=== PATIENT | female | born 1970 | race Caucasian/White ===

== ENCOUNTER → 2017-06-03 | Outpatient (CLI) | payer OTHER ==
--- NOTE | 2017-06-04 10:02 | MM ---
Reason for exam: screening (asymptomatic). Last mammogram was performed 2 years and 10 months ago. Physical Findings: A clinical breast exam by your physician is recommended on an annual basis and results should be correlated with mammographic findings. MG Screening Mammo w CAD Bilateral CC and MLO view(s) were taken. Prior study comparison: July 18, 2014, bilateral MG screening mammo w CAD. The breast tissue is heterogeneously dense. This may lower the sensitivity of mammography. No suspicious abnormality. No significant changes when compared with prior studies. ASSESSMENT: Negative, BI-RAD 1 RECOMMENDATION: Routine screening mammogram of both breasts in 1 year.
== END | disposition home or self-care (01) ==
LOC: RADMAMWWP 12:59
PROVIDERS: ATTEND Obstetrics & Gynecology
DX: Z12.31 Encounter for screening mammogram for malignant neoplasm of breast (principal)
CPT/HCPCS: 77067

== ENCOUNTER → 2018-02-25 | Outpatient (CLI) | payer BC ==
--- NOTE | 2018-02-25 10:33 | XR ---
EXAMINATION TYPE: XR abdomen 2V DATE OF EXAM: 02/25/2018 HISTORY: Pain. Technique: 2 views of the abdomen are submitted. Comparison: None. Findings: There is no convincing evidence of pneumoperitoneum. The Bowel gas pattern is nonspecific and nonobstructive. No sizable air-fluid levels are seen. No mass effects are noted. No renal calcifications are identified. IMPRESSION: 1. Nonspecific nonobstructive bowel gas pattern
== END | disposition home or self-care (01) ==
LOC: RADXRYALE 09:58
PROVIDERS: ATTEND Physician Assistant Medical
DX: R10.30 Lower abdominal pain, unspecified (principal)
CPT/HCPCS: 74019

== ENCOUNTER 2018-09-28 12:51 | Emergency (ER) | payer BC ==
[2018-09-28 13:32] VITALS: RESP 18
[2018-09-28 14:15] VITALS: TEMP 97.8
[2018-09-28] MEDS ORDERED: diphenhydrAMINE 50 MG/ML 1 ML VIAL IVP STA (14:19)
[2018-09-28] MEDS ORDERED: SODIUM CHLORIDE 0.9% 2,000 ML IV STA (14:19)
[2018-09-28] MEDS ORDERED: PANTOPRAZOLE 40 MG/10 ML VIAL IVP STA (14:19)
[2018-09-28] MEDS ORDERED: ONDANSETRON 4 MG/2 ML VIAL IVP STA (14:19)
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
[2018-09-28 15:02] LABS: Albumin 5.3 g/dL (3.5-5.0); Calcium 10.7 mg/dL (8.4-10.2); Potassium 4.2 mmol/L (3.5-5.1); Total Bilirubin 0.8 mg/dL (0.2-1.3); Total Protein 9.2 g/dL (6.3-8.2)
[2018-09-28 15:07] LABS: Anisocytosis Slight; Basophils # (A) 0.1 k/uL (0-0.2); Basophils % (A) 0 %; Eosinophils # (A) 0.3 k/uL (0-0.7); Eosinophils % (A) 1 %; HCT 53.1 % (34.0-46.0); HGB 17.3 gm/dL (11.4-16.0); Lymphocytes # (A) 0.7 k/uL (1.0-4.8); Lymphocytes % (A) 3 %; MCH 26.9 pg (25.0-35.0); MCHC 32.6 g/dL (31.0-37.0); MCV 82.6 fL (80.0-100.0); Mean Platelet Volume 7.9; Monocytes # (A) 1.2 k/uL (0-1.0); Monocytes % (A) 5 %; Neutrophils # (A) 22.8 k/uL (1.3-7.7); Neutrophils % (A) 91 %; Platelet Count 369 k/uL (150-450); RBC 6.43 m/uL (3.80-5.40); RDW 16.8 % (11.5-15.5); WBC 25.1 k/uL (3.8-10.6)
--- NOTE | 2018-09-28 15:10 | XR ---
EXAMINATION TYPE: XR KUB DATE OF EXAM: 09/28/2018 3:06 PM CLINICAL HISTORY: Nausea, vomiting and bloody stool TECHNIQUE: Single upright image of the abdomen is obtained. COMPARISON: None. FINDINGS: Overall there is a possibility of bowel gas. Scattered gas is seen in nondistended bowel. T here is no visceromegaly, pneumoperitoneum, or abnormal calcification appreciated. The lung bases are clear and the osseous structures are intact. Largely intrathoracic stomach is noted. IMPRESSION: There is a largely intrathoracic stomach noted. Overall paucity of bowel gas throughout t he abdomen is nonspecific but can be seen in colitis. Nonobstructive bowel gas pattern. No pneumoperi toneum is seen.
--- NOTE | 2018-09-28 16:22 | CT ---
EXAMINATION TYPE: CT abdomen pelvis wo con DATE OF EXAM: 09/28/2018 HISTORY: Nausea and vomiting today. CT DLP: 578.2 mGycm. Automated Exposure Control for Dose Reduction was Utilized. TECHNIQUE: CT scan of the abdomen and pelvis is performed without oral or IV contrast. COMPARISON: CTA chest July 02, 2012 FINDINGS: Within the limitations of a non-contrast study, the following observations are made. LUNG BASES: No significant abnormality is appreciated. LIVER/GB: Nonspecific 1.4 cm hypodense lesion anterior right hepatic dome axial image 14 is slightly enlarged from 2013 CT favoring simple thin-walled cyst. PANCREAS: No significant abnormality is seen. SPLEEN: No significant abnormality is seen. ADRENALS: No significant abnormality is seen. KIDNEYS: No renal calculi or hydronephrosis. BOWEL: Moderate to large size hiatal hernia with gastric twisting is present as greater curvature is more cranial position relative to lesser curvature. This is presumed chronic but is only partially im aged on this study. There was hernia with abnormal twisting in 2013 CT but it is increased in size fr om the study. Proximal to mid esophagus is not included in [id number] Remainder of bowel shows no suspicious dilatation. GENITAL ORGANS: Lobulated prominent uterus suggests underlying fibroids. LYMPH NODES: No greater than 1cm abdominal or pelvic lymph nodes are appreciated. OSSEOUS STRUCTURES: No significant abnormality is seen. OTHER: No significant additional abnormality is seen. IMPRESSION: No bowel obstruction. Moderate to large size hiatal hernia increased in size from 2013 CT with abnormal twisting redemonstrated favored chronic finding.
[2018-09-28] MEDS ORDERED: cefTRIAXone IN SWFI 1,000 MG/10 ML SYRINGE IVP STA (16:35)
[2018-09-28] MEDS ORDERED: DEXAMETHASONE SOD PHOSPHATE 10 MG/ML 1 ML VIAL IV STA (16:39)
[2018-09-28 16:46] LABS: Amorphous Sediment,Urine Occasional /hpf; Appearance,Urine Turbid (Clear); Bacteria,Urine Occasional /hpf; Bilirubin,Urine 1+ (Negative); Blood,Urine Small (Negative); Color,Urine Dark Brown; Glucose,Urine (UA) Trace (Negative); Hyaline Casts,Urine 589 /lpf (0-2); Ketones,Urine Negative (Negative); Leukocyte Esterase,Urine Trace (Negative); Mucus,Urine Many /hpf; Nitrite,Urine Negative (Negative); PH, Urine 5.5 (5.0-8.0); Protein,Urine 2+ (Negative); RBC,Urine 8 /hpf (0-5); Specific Gravity,Urine 1.027 (1.001-1.035); Squamous Epithelial Cell,Urine 33 /hpf (0-4)
[2018-09-28 16:51] VITALS: BP 103/61; PULSE 87
== END 2018-09-28 17:26 | disposition home or self-care (01) ==
LOC: EC 12:51
DX: K52.9 Noninfective gastroenteritis and colitis, unspecified (principal); D72.829 Elevated white blood cell count, unspecified; N17.9 Acute kidney failure, unspecified; K12.2 Cellulitis and abscess of mouth; E86.0 Dehydration; Z79.899 Other long term (current) drug therapy; Z91.030 Bee allergy status
CPT/HCPCS: 99285; 96374; 96375 ×4; 96361 ×2; 36415; 80053; 82150; 83690; 85025; 81001; 87086; 74018; 74176; J1200; J1100; J2405; J0696; C9113

== ENCOUNTER → 2019-05-09 | Outpatient (CLI) | payer OTHER ==
--- NOTE | 2019-05-12 11:14 | MM ---
Reason for exam: screening (asymptomatic). Last mammogram was performed 1 year and 11 months ago. History: Cyst aspiration of the left breast, 2004. Physical Findings: A clinical breast exam by your physician is recommended on an annual basis and results should be correlated with mammographic findings. MG 3D Screening Mammo W/Cad Bilateral CC and MLO view(s) were taken. Prior study comparison: June 03, 2017, bilateral MG screening mammo w CAD. July 18, 2014, bilateral MG screening mammo w CAD. The breast tissue is heterogeneously dense. This may lower the sensitivity of mammography. There are benign appearing oval, circumscribed bilateral masses similar to prior exams. No suspicious abnormality. No significant changes when compared with prior studies. ASSESSMENT: Benign, BI-RAD 2 RECOMMENDATION: Routine screening mammogram of both breasts in 1 year.
== END | disposition home or self-care (01) ==
LOC: RADMAMWWP 16:41
PROVIDERS: ATTEND Obstetrics & Gynecology
DX: Z12.31 Encounter for screening mammogram for malignant neoplasm of breast (principal)
CPT/HCPCS: 77063; 77067

== ENCOUNTER → 2021-04-25 | Outpatient (CLI) | payer OTHER ==
--- NOTE | 2021-04-25 11:30 | XR ---
EXAMINATION TYPE: XR chest 2V DATE OF EXAM: 04/25/2021 COMPARISON: 04/18/2014 HISTORY: Shortness of breath TECHNIQUE: Frontal and lateral views of the chest are obtained. FINDINGS: Scattered senescent parenchymal changes noted. Hyperinflation compatible with COPD. Large fixed hiata l hernia noted. No evidence for infiltrate. No evidence for atelectasis. Heart size is stable. Mediastinal structures are stable and grossly unremarkable. No evidence for hilar prominence. Degenerative changes dorsal spine. IMPRESSION: 1. No evidence for acute pulmonary disease.
== END | disposition home or self-care (01) ==
LOC: RADXRYALE 08:48
PROVIDERS: ATTEND Physician Assistant
DX: R06.02 Shortness of breath (principal)
CPT/HCPCS: 71046

== ENCOUNTER → 2021-05-17 | Outpatient (CLI) | payer BC ==
--- NOTE | 2021-05-17 14:40 | FL ---
EXAMINATION TYPE: FL barium swallow DATE OF EXAM: 05/17/2021 COMPARISON: None HISTORY: Gastroesophageal reflux, hiatal hernia TECHNIQUE: Real-time fluoroscopy observation and overhead radiographs were obtained FINDINGS: There is a large hiatal hernia including slightly more than 50% of the stomach. The esophagus dilates to normal caliber. The gastroesophageal junction appears to lie above the diaph ragm. Contrast extends into the proximal and distal stomach. Fluoroscopy time: 1 minute 26 seconds. Images: 138 IMPRESSION: 1. Large portion of the stomach herniated into the lower thoracic region. The gastroesophageal junct ion appears to lie above the diaphragm.
== END | disposition home or self-care (01) ==
LOC: RADUSWWP 10:00
PROVIDERS: ATTEND Surgery
DX: K46.9 Unspecified abdominal hernia without obstruction or gangrene (principal)
CPT/HCPCS: 74220

== ENCOUNTER 2021-06-10 05:48 | Inpatient (IN) | payer BC ==
[~2021-06-10 05:48] MED LIST: ACETAMINOPHEN TAB 500 MG TAB PO PRN; HEPARIN SODIUM,PORCINE/PF 5,000 UNIT/0.5 ML SYRINGE SQ PRN
[2021-06-10] MEDS ORDERED: ONDANSETRON 4 MG/2 ML VIAL IVP ONE (06:22)
[2021-06-10] MEDS ORDERED: LIDOCAINE 1% (10MG/ML) FOR IV START INTRADERMA PRN (06:22)
[2021-06-10] MEDS ORDERED: DEXAMETHASONE SOD PHOSPHATE 4 MG/ML 1 ML VIAL IV ONE (06:22)
[2021-06-10] MEDS ORDERED: HYDROmorphone 1 MG/ML 1 ML SYRINGE IVP PRN ×2 (06:22→09:40)
[2021-06-10] MEDS ORDERED: SCOPOLAMINE 1.5MG/72HR PATCH TRANSDERM ONE (06:22)
[2021-06-10] MEDS: LACTATED RINGERS 1,000 ML IV SCH (06:45)
[2021-06-10 06:58] LABS: Potassium 3.9 mmol/L (3.5-5.1)
[2021-06-10] MEDS ORDERED: BUPIVACAIN-EPI 0.25%-1:200,000 30 ML VIAL SQ ONE (08:18)
--- NOTE | 2021-06-10 09:34 | P.GSHP ---
History of Present Illness H&P Date: 06/10/21 Chief Complaint: Dysphagia This a 50-year-old female who's had chronic issues with dysphagia and GERD. Patient was found to have a large paraesophageal hernia with a intrathoracic stomach. She presents today for laparoscopic repair. Patient aware the risks of conversion to the open procedure and injury to the stomach liver or spleen. Past Medical History Past Medical History: GERD/Reflux Additional Past Medical History / Comment(s): large hiatal hernia that causes SOB per pt, tested + for covid 12-24-21, constipation/diarreha, IBD, diverticulits, anemia, History of Any Multi-Drug Resistant Organisms: None Reported Past Surgical History: Breast Surgery, Tubal Ligation, Uterine Ablation Additional Past Surgical History / Comment(s): LEFT BREAST CYST., colonoscopy Past Anesthesia/Blood Transfusion Reactions: Family History of Problems w/ Anesthesia Additional Past Anesthesia/Blood Transfusion Reaction / Comment(s): STATES THAT HER DAUGHTER HAS HAD PANIC ATTACKS POST ANESTHESIA. MOTHER ALMOST AFTER SURGERY (MANY YEAR AGO), SHE DID NOT KNOW THE SPECIFICS. Smoking Status: Former smoker - Past Family History Mother Family Medical History: No Reported History Medications and Allergies Home Medications Medication Instructions Recorded Confirmed Type FLUoxetine HCL [PROzac] 20 mg PO HS 09/28/18 06/05/21 History Cetirizine HCl [Zyrtec] 10 mg PO HS 06/05/21 06/05/21 History Allergies Allergy/AdvReac Type Severity Reaction Status Date / Time venom-honey bee Allergy Swelling Verified 06/05/21 15:58 [bee venom (honey bee)] Surgical - Exam Vital Signs Temp Pulse Resp BP Pulse Ox 98 F 71 20 111/54 94 L 06/10/21 06:20 06/10/21 06:20 06/10/21 06:20 06/10/21 06:20 06/10/21 06:20 - General well developed, well nourished, no distress - Eyes PERRL - ENT normal pinna - Neck no masses - Respiratory normal expansion - Cardiovascular Rhythm: regular - Abdomen Abdomen: soft, non tender - Genitourinary normal external genitalia - Integumentary no rash Results - Labs 06/10/21 06:36 Abnormal Lab Results - Last 24 Hours (Table) 06/10/21 Range/Units 06:36 Chloride 108 H (98-107) mmol/L Diabetes panel 06/10/21 Range/Units 06:36 Sodium 139 (137-145) mmol/L Potassium 3.9 (3.5-5.1) mmol/L Chloride 108 H (98-107) mmol/L Carbon Dioxide 26 (22-30) mmol/L Pituitary panel 06/10/21 Range/Units 06:36 Sodium 139 (137-145) mmol/L Potassium 3.9 (3.5-5.1) mmol/L Chloride 108 H (98-107) mmol/L Carbon Dioxide 26 (22-30) mmol/L Adrenal panel 06/10/21 Range/Units 06:36 Sodium 139 (137-145) mmol/L Potassium 3.9 (3.5-5.1) mmol/L Chloride 108 H (98-107) mmol/L Carbon Dioxide 26 (22-30) mmol/L Assessment and Plan Assessment: Paraesophageal hernia Dysphagia . We'll perform laparoscopic repair
--- NOTE | 2021-06-10 09:39 | P.OP ---
Date of Procedure: 06/10/21 Preoperative Diagnosis: Paraesophageal hernia Postoperative Diagnosis: Paraesophageal hernia Procedure(s) Performed: Laparoscopic repair of paraesophageal hernia with mesh Anesthesia: TICO Surgeon: Kalia Argueta Estimated Blood Loss (ml): 5 Pathology: none sent Condition: stable Disposition: PACU Description of Procedure: The patient was placed on the operating table in the supine position. The patient received general anesthesia. And was placed in dorsal lithotomy p osition. The patient was prepped and draped in the usual sterile fashion. The skin incision sites were anesthetized with 1% local Xylocaine. The skin was incised in the left periumbilical area and then using a blade less 5 mm trocar under direct visualization panel cavity was entered. After adequate insufflation the laparoscope was then placed into the peritoneal cavity. Next a 5 mm trochars placed in the right epigastric position. Another 5 millimeter trocar the right lateral position. Another 5 millimeter trocar in the left lateral position a 5 mm trocar is placed in the left epigastric position. And then the initial 5 mm trocar was exchanged for a 10 mm trocar. The left lateral lobe liver was retracted. The hernia was seen. The patient had home almost completely intrathoracic stomach. The stomach and greater omentum was reduced. Using the Harmonic scissors the hiatal hernia sac was dissected free. The stomach was completely brought back down into the abdomen. The crural defect was then closed using 2-0 Ethibond suture. After the crura closure was performed. A piece of Zarephath bio a mesh was placed over top the repair and secured with the sew right device and 2-0 Ethibond suture. The esophagus was attached to the crura using 2-0 Ethibond suture. No bleeding was seen. The trochars withdrawn. The skin was then closed with interrupted 3-0 Monocryl suture. Dermabond was applied. Patient tolerated the procedure well. She was sent to recovery room stable condition
[2021-06-10] MEDS ORDERED: ONDANSETRON 4 MG/2 ML VIAL IVP PRN (09:40)
[2021-06-10] MEDS ORDERED: LACTATED RINGERS 1,000 ML IV ONE (10:05)
[2021-06-10] MEDS: KETOROLAC 15 MG/ML 1 ML VIAL IVP SCH ×3 (10:21→17:23)
[2021-06-10] MEDS: METOCLOPRAMIDE 5 MG/ML 2 ML VIAL IVP SCH ×2 (12:09→17:22)
[2021-06-10] MEDS: D5-0.45% NACL WITH KCL 20MEQ/L 1,000 ML IV SCH ×3 (12:10→23:10)
[2021-06-10 14:59] VITALS: BMI 31.9
[2021-06-10 20:34] VITALS: RESP 15
--- NOTE | 2021-06-11 00:56 | P.CONS ---
History of Present Illness - History of Present Illness This is a pleasant 50 years old female with past medical history of GERD, large hiatal hernia that causes SOB per pt, tested + for covid 12-24-21, con stipation/diarreha, IBD, diverticulits, anemia, Admitted for her esophageal have anemia, Laparoscopic repair of paraesophageal hernia with mesh. Patient lying in bed comfortable denies any specific symptoms, no chest pain or dyspnea. Patient is hemodynamically stable. sodium 139, potassium 3.9, chloride 108, carbon dioxide 26, anion gap 5. she is on lovenox 40 mg daily. coronal flap not detected Review of Systems CONSTITUTIONAL: No fever, no malaise, no fatigue. HEENT: No recent visual problems or hearing problems. Denied any sore throat. CARDIOVASCULAR: No orthopnea, PND, no palpitations, no syncope. PULMONARY: No shortness of breath, no cough, no hemoptysis. GASTROINTESTINAL: No diarrhea, no nausea, no vomiting, no abdominal pain. Normoactive bowel sounds. NEUROLOGICAL: No headaches, no weakness, no numbness. HEMATOLOGICAL: Denies any bleeding or petechiae. GENITOURINARY: Denies any burning micturition, frequency, or urgency. MUSCULOSKELETAL/RHEUMATOLOGICAL: Denies any joint pain, swelling, or any muscle pain. ENDOCRINE: Denies any polyuria or polydipsia. Past Medical History Past Medical History: GERD/Reflux Additional Past Medical History / Comment(s): large hiatal hernia that causes SOB per pt, tested + for covid 12-24-21, constipation/diarreha, IBD, diverticulits, anemia, History of Any Multi-Drug Resistant Organisms: None Reported Past Surgical History: Breast Surgery, Tubal Ligation, Uterine Ablation Additional Past Surgical History / Comment(s): LEFT BREAST CYST., colonoscopy Past Anesthesia/Blood Transfusion Reactions: Family History of Problems w/ Anesthesia Additional Past Anesthesia/Blood Transfusion Reaction / Comm: STATES THAT HER DAUGHTER HAS HAD PANIC ATTACKS POST ANESTHESIA. MOTHER ALMOST AFTER SURGERY (MANY YEAR AGO), SHE DID NOT KNOW THE SPECIFICS. Smoking Status: Former smoker - Past Family History Mother Family Medical History: No Reported History Medications and Allergies Home Medications Medication Instructions Recorded Confirmed Type FLUoxetine HCL [PROzac] 20 mg PO HS 09/28/18 06/05/21 History Cetirizine HCl [Zyrtec] 10 mg PO HS 06/05/21 06/05/21 History Allergies Allergy/AdvReac Type Severity Reaction Status Date / Time venom-honey bee Allergy Swelling Verified 06/05/21 15:58 [bee venom (honey bee)] Physical Exam Vitals: Vital Signs Temp Pulse Pulse Resp BP BP Pulse Ox 06/10/21 10:20 53 L 16 126/62 94 L 06/10/21 10:13 53 L 16 136/66 96 06/10/21 09:58 53 L 16 136/66 96 06/10/21 09:43 53 L 16 124/77 100 06/10/21 09:28 97.1 F L 75 16 126/63 94 L 06/10/21 06:20 98 F 71 20 111/54 94 L Intake and Output 06/09/21 06/10/21 06/10/21 22:59 06:59 14:59 Intake Total 850 Output Total 10 Balance 840 Intake: IV 850 Output: Estimated Blood Loss 10 Other: Weight 89.9 kg GENERAL: The patient is alert and oriented x3, not in any acute distress. Well developed, well nourished. HEENT: Pupils are round and equally reacting to light. EOMI. No scleral icterus. No conjunctival pallor. Normocephalic, atraumatic. No pharyngeal erythema. No thyromegaly. CARDIOVASCULAR: S1 and S2 present. No murmurs, rubs, or gallops. PULMONARY: Chest is clear to auscultation, no wheezing or crackles. ABDOMEN: Soft, nontender, nondistended, normoactive bowel sounds. No palpable organomegaly. MUSCULOSKELETAL: No joint swelling or deformity. EXTREMITIES: No cyanosis, clubbing, or pedal edema. NEUROLOGICAL: Gross neurological examination did not reveal any focal deficits. SKIN: No rashes. No petechiae Results CBC & Chem 7: 06/10/21 06:36 Labs: Abnormal Lab Results - Last 24 Hours (Table) 06/10/21 Range/Units 06:36 Chloride 108 H (98-107) mmol/L Assessment and Plan Assessment: Paraesophageal hernia, status post Laparoscopic repair of paraesophageal hernia with mesh History of large hiatal hernia History of Covid infection Irritable bowel syndrome History of diverticulitis Plan: Patient is a pleasant 50 years old female with paraesophageal hernia repair. Patient currently is asymptomatic other than discomfort at surgical site, primary surgery team also following the patient closely. continue with pain management, as per surgery team recommendation continue with IV hydration, monitor blood pressure DVT prophylaxis , on Lovenox subcu 40 mg daily Labs and medication were reviewed.. Continue same treatment. Continue with symptomatic treatment. Resume home medication. Monitor lytes and vitals. DVT and GI prophylaxis. Further recommendations depends on the clinical course of the patient Discussed with the bedside nurse Thank you for consulting us
[2021-06-11] MEDS: KETOROLAC 30 MG/ML 1 ML VIAL IVP SCH ×3 (01:17→13:37)
[2021-06-11] MEDS: METOCLOPRAMIDE 5 MG/ML 2 ML VIAL IVP SCH ×3 (01:18→13:37)
[2021-06-11] MEDS: D5-0.45% NACL WITH KCL 20MEQ/L 1,000 ML IV SCH (05:50)
[2021-06-11] MEDS ORDERED: ENOXAPARIN 40 MG/0.4 ML SYRINGE SQ SCH (09:00)
--- NOTE | 2021-06-11 09:56 | FL ---
Limited esophagram HISTORY: Status post hiatal hernia repair Patient was given Omnipaque 300 to drink. 37 seconds fluoroscopy time, 8 intraoperative images document the procedure Attention directed to the gastroesophageal junction. Swallowing mechanism is normal. Postop changes a re noted at the gastroesophageal junction. There is no extravasation to suggest leak. No obstruction to flow. Basilar atelectasis noted incidentally. IMPRESSION: No evident complication status post hiatal hernia repair.
[2021-06-11] MEDS: LACTATED RINGERS 1,000 ML IV SCH (10:42)
--- NOTE | 2021-06-11 13:52 | P.DS ---
Providers Date of admission: 06/10/21 05:48 Expected date of discharge: 06/11/21 Attending physician: Kalia Argueta Consults: 06/10/21 09:40 Consult Physician Routine Consulting Provider: Tameka Manjarrez Consult Reason/Comments: Medical management Do you want consulting provider notified?: Yes Primary care physician: Saurabh Mae Hospital Course: Discharge diagnosis 1. 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 Patient was found to have a large paraesophageal hernia with a intrathoracic stomach. Patient is status post Laparoscopic repair of paraesophageal hernia with mesh. Patient's upper GI shows no evidence of leak or obstruction. She is tolerating the Marv clear liquid diet. Her pain is controlled. She is afebrile. She is having flatus. She is up and ambulating. She is stable for discharge. Please refer to chart for any further details. Physician [employer] note has been reviewed by physician. Signing provider agrees with the documented findings, assessment, and plan of care. Patient Condition at Discharge: Stable Plan - Discharge Summary Discharge Rx Participant: Yes New Discharge Prescriptions: New Docusate [Colace] 100 mg PO BID #30 capsule HYDROcodone/APAP 5-325MG [[place] 5-325] 1 tab PO Q6HR PRN 3 Days #12 tab PRN Reason: Pain Continue FLUoxetine HCL [PROzac] 20 mg PO HS Cetirizine HCl [Zyrtec] 10 mg PO HS Discharge Medication List FLUoxetine HCL [PROzac] 20 mg PO HS 09/28/18 [History] Cetirizine HCl [Zyrtec] 10 mg PO HS 06/05/21 [History] Docusate [Colace] 100 mg PO BID #30 capsule 06/11/21 [Rx] HYDROcodone/APAP 5-325MG [[place] 5-325] 1 tab PO Q6HR PRN 3 Days #12 tab 06/11/21 [Rx] Follow up Appointment(s)/Referral(s): Kalia Argueta MD [STAFF PHYSICIAN] - 1 Week Activity/Diet/Wound Care/Special Instructions: No driving while taking [place] No lifting over 10 pounds You may shower. No soaking or tub baths for 2 weeks Very light activity until you are reevaluated at your follow up appointment with your surgeon No straws or carbonated beverages Discharge Disposition: HOME SELF-CARE
[2021-06-11 14:45] VITALS: BP 108/71; PULSE 70; TEMP 98.7
--- NOTE | 2021-06-12 00:42 | P.PN ---
Subjective Progress Note Date: 06/11/21 - History of Present Illness This is a pleasant 50 years old female with past medical history of GERD, large hiatal hernia that causes SOB per pt, tested + for covid 12-24-, constipation/diarreha, IBD, diverticulits, anemia, Admitted for her esophageal have anemia, Laparoscopic repair of paraesophageal hernia with mesh. Patient lying in bed comfortable denies any specific symptoms, no chest pain or dyspnea. Patient is hemodynamically stable. sodium 139, potassium 3.9, chloride 108, carbon dioxide 26, anion gap 5. she is on lovenox 40 mg daily. covid not detected 06/11/2021 Patient is seen this morning and reports to passing gas with no bowel movement. Diet being started and tolerating ice chips and water. Patient up and moving and denies any chest pain, shortness of breath, or palpitations. Patient is afebrile. Patient anticipating possible discharge. Medications have been reviewed and appropriate medications will be resumed. PHysical exam: GENERAL: The patient is alert and oriented x3, not in any acute distress. Well developed, well nourished. HEENT: Pupils are round and equally reacting to light. EOMI. No scleral icterus. No conjunctival pallor. Normocephalic, atraumatic. No pharyngeal erythema. No thyromegaly. CARDIOVASCULAR: S1 and S2 present. No murmurs, rubs, or gallops. PULMONARY: Chest is clear to auscultation, no wheezing or crackles. ABDOMEN: Soft, nontender, nondistended, normoactive bowel sounds. No palpable organomegaly. MUSCULOSKELETAL: No joint swelling or deformity. EXTREMITIES: No cyanosis, clubbing, or pedal edema. NEUROLOGICAL: Gross neurological examination did not reveal any focal deficits. SKIN: No rashes. No petechiae Assessment: Paraesophageal hernia, status post Laparoscopic repair of paraesophageal hernia with mesh History of large hiatal hernia History of recent Covid infection Irritable bowel syndrome History of diverticulitis DVT prophylaxis GI prophylaxis Plan: Patient is a pleasant 50 years old female with paraesophageal hernia repair. Patient underwent swallow follow up and did well and diet being advanced. Patient reports to passing gas with no bowel movement. Some abdominal tenderness although feels much better than yesterday. Patient anticipates discharge today. Recommend outpatient follow up with pcp and continue current medications. Will continue to follow during hospitalization and would like to thank you for this consultation. Objective - Vital Signs Vital signs: Vital Signs Temp 99.3 F 06/11/21 08:00 Pulse 81 06/11/21 08:00 Resp 15 06/10/21 19:39 BP 104/66 06/11/21 08:00 Pulse Ox 94 L 06/11/21 08:00 Intake & Output 06/10/21 06/11/21 06/11/21 18:59 06:59 18:59 Intake Total 1850 Output Total 10 Balance 1840 Weight 89.9 kg Intake: IV 850 Intake, IV Titration 1000 Amount D5-0.45% NaCl with KCl 1000 20Meq/l 1,000 ml @ 125 mls/hr IV .Q8H AKBAR Rx#: [id number] Output: Estimated Blood Loss 10 Other: # Voids 1 - Labs CBC & Chem 7: 06/10/21 06:36
== END 2021-06-11 14:49 | disposition home or self-care (01) | DRG 328 ==
LOC: 2ORMAIN 05:48 → 4SSUR 09:38
PROVIDERS: ADMIT Surgery; ATTEND Surgery
PROC: 0BUT4JZ Supplement Diaphragm with Synthetic Substitute, Percutaneous Endoscopic Approach (ICD-10-PCS; principal; 2021-06-10 07:40)
PROC: 0CJS8ZZ Inspection of Larynx, Via Natural or Artificial Opening Endoscopic (ICD-10-PCS; 2021-06-11)
PROC: [UNRECOGNIZED PROCEDURE] (2021-06-11)
DX: K44.9 Diaphragmatic hernia without obstruction or gangrene (principal); K21.9 Gastro-esophageal reflux disease without esophagitis; D64.9 Anemia, unspecified; R13.19 Other dysphagia; K58.9 Irritable bowel syndrome, unspecified; Z20.822 Contact with and (suspected) exposure to COVID-19; Z79.01 Long term (current) use of anticoagulants; Z86.16 Personal history of COVID-19; Z87.891 Personal history of nicotine dependence; Z91.030 Bee allergy status; Z87.19 Personal history of other diseases of the digestive system; Z98.51 Tubal ligation status
CPT/HCPCS: 74210; 80051; 81025; 87635

== ENCOUNTER → 2022-12-01 | Outpatient (CLI) | payer BC ==
--- NOTE | 2022-12-01 08:19 | MM ---
Reason for Exam: Screening (asymptomatic). Last mammogram was performed 3 year(s) and 6 month(s) ago. Patient History: Menarche at age 10. First Full-Term at age 20. Postmenopausal. Patient has history of breast feeding. 2005, Cyst Aspiration on the Left side. Risk Values: Devi 5 year model risk: 1.0%. NCI Lifetime model risk: 7.7%. Prior Study Comparison: 07/18/2014 Bilateral Screening Mammogram, [facility]. 06/03/2017 Bilateral Screening Mammogram, [facility]. 05/09/2019 Bilateral Screening Mammogram, [facility]. Tissue Density: The breast tissue is heterogeneously dense. This may lower the sensitivity of mammography. Findings: Analyzed By CAD. There is no suspicious group of microcalcifications or new suspicious mass in either breast. Overall Assessment: Negative, BI-RAD 1 Management: Screening Mammogram of both breasts in [address] [facility] will attempt to contact patient to return for supplemental views and ultrasound if indicated. Patient should continue monthly self-breast exams. A clinical breast exam by your physician is recommended on an annual basis. This exam should not preclude additional follow-up of suspicious palpable abnormalities. Note on Devi scores and lifetime risk: 1. A Devi score greater than 3% is considered moderate risk. If this is the case, consider specialist referral to assess eligibility for a risk reducing agent. 2. If overall lifetime risk for the development of breast cancer is 20% or higher, the patient may qualify for future screening with alternating mammogram and breast MRI. Electronically signed and approved by: Luis Angel Whitehead DO
--- NOTE | 2022-12-02 10:14 | BD ---
EXAMINATION TYPE: Axial Bone Density DATE OF EXAM: 12/01/2022 CLINICAL HISTORY: 51 years old Female. ICD-10 CODE: N95.1 Height: 65.5 Weight: 168.3 FRAX RISK QUESTIONS: Alcohol (3 or more units per day): no Family History (Parent hip fracture): no Glucocorticoids (More than 3mos): no History of Fracture in Adulthood: no Secondary Osteoporosis: 1. Type 1 Diabetes: no 2. Hyperthyroidism: no 3. Menopause before 45: no 4. Malnutrition: no 5. Chronic liver disease: no Rheumatoid Arthritis: no Current Tobacco Use: RISK FACTORS HISTORY OF: Hip Fracture (Right/Left): no Spine Fracture: no History of Wrist Fracture: no Surgery to Spine/Hip(right/left)/Wrist (right/left): no Family History of Osteoporosis: Mother Active: somewhat Diet low in dairy products/other sources of calcium: no Postmenopausal woman: yes Take estrogen and/or progesterone medications: no Lost more than 2 inches in height since high school: no Frequent falls: no Poor Health: no Hyperparathyroidism: no Adrenal Insufficiency: no MEDICATIONS: Prednisone or other steroids: no Thyroid Medications: no Osteoporosis Medications: no Additional Medications: Prosaic Additional History: EXAM MEASUREMENTS: Bone mineral densitometry was performed using the [employer]visity System. Bone mineral density as measured about the Lumbar spine is: ----- L1-L4(G/cm2): 1.120 T Score Values are as follows: ----- L1: -0.8 ----- L2: 0.0 ----- L3: 0.0 ----- L4: -1.1 ----- L1-L4: -0.5 Z Score Values are as follows: ----- L1: -0.5 ----- L2: 0.3 ----- L3: 0.3 ----- L4: -0.8 ----- L1-L4: -0.2 Baseline Study Bone mineral density about the R hip (g/cm2): 0.955 Bone mineral density about the L hip (g/cm2): 0.986 T Score values are as follows: -----R Neck: -1.2 -----L Neck: -0.8 -----R Total: -0.4 -----L Total: -0.2 Z Score values are as follows: -----R Neck: -0.5 -----L Neck: -0.1 -----R Total: -0.1 -----L Total: 0.2 Baseline Study FRAX%s: The graph provided illustrates a 5.7 % chance for a major osteoporotic fx and a 0.3% chance f or the hips probability for fx in 10 years time. IMPRESSION: Osteopenia (T Score between -2.5 and -1). There is slightly increased risk of fracture and the patient may be considered for treatment. Re-Screen 2-5 years. NOTE: T-SCORE=SD OF THE YOUNG ADULT MEAN.
== END | disposition home or self-care (01) ==
LOC: RADMAMWWP 07:23
PROVIDERS: ATTEND Obstetrics & Gynecology
DX: Z12.31 Encounter for screening mammogram for malignant neoplasm of breast (principal); M85.89 Other specified disorders of bone density and structure, multiple sites; Z78.0 Asymptomatic menopausal state
CPT/HCPCS: 77063; 77067; 77080